=== PATIENT | female | born 1950 | race Caucasian/White ===

== ENCOUNTER 2021-09-13 06:15 | Day surgery (SDC) | payer MEDICARE, OTHER ==
[~2021-09-13] VITALS: Ht 160 cm; Wt 70.5 kg
[2021-09-13] MEDS ORDERED: BENZOCAINE 20% 50 MCG/SPRAY 57 GM TP ONE (06:16)
[2021-09-13] MEDS ORDERED: LIDOCAINE 4% 50 ML SOLUTION TP ONE (06:16)
[2021-09-13] MEDS ORDERED: LIDOCAINE 2% 5 ML JELLY TP ONE (06:16)
[2021-09-13] MEDS ORDERED: SODIUM CHLORIDE 0.9% 1,000 ML IV ONE (06:30)
[2021-09-13] MEDS ORDERED: SODIUM CHLORIDE 0.9% 1,000 ML ONE (06:36)
[2021-09-13] MEDS ORDERED: MIDAZOLAM HCL 5 MG/ML VIAL ONE (07:03)
[2021-09-13] MEDS ORDERED: FentaNYL CITRATE PF 100 MCG/2 ML VIAL ONE (07:03)
[2021-09-13 07:13] LABS: COVID AG,FIA SOURCE NASAL SWAB
[2021-09-13] MEDS ORDERED: ASPI325T87 PO (08:10)
[2021-09-13] MEDS ORDERED: NIFE90TA63 PO (08:10)
[2021-09-13] MEDS ORDERED: LEVO200 PO (08:10)
[2021-09-13] MEDS ORDERED: BUSP10TA23 PO (08:10)
[2021-09-13] MEDS ORDERED: FENO48TA20 PO (08:10)
[2021-09-13] MEDS ORDERED: PARI1CAP11 PO (08:10)
[2021-09-13] MEDS ORDERED: PHEN50 PO (08:10)
[2021-09-13] MEDS ORDERED: CINA30 PO (08:10)
[2021-09-13] MEDS ORDERED: VIT1TABL66 PO (08:10)
[2021-09-13] MEDS ORDERED: SODI650T33 PO (08:10)
[2021-09-13] MEDS ORDERED: FAMO20 PO (08:10)
[2021-09-13] MEDS ORDERED: NEBI5TAB2 PO (08:10)
[2021-09-13] MEDS ORDERED: CLOT15CR5 TP (08:10)
[2021-09-13] MEDS ORDERED: OLOP2.5D12 OP (08:10)
[2021-09-13] MEDS ORDERED: MethylPREDNISolone SOD SUCC 125 MG/2 ML VIAL IVP ONE (09:45)
[2021-09-13] MEDS ORDERED: OXYGEN THERAPY IH SCH (20:00)
== END 2021-09-13 11:15 | disposition home or self-care (01) ==
LOC: SURGERY 06:15
PROVIDERS: ATTEND Internal Medicine Critical Care Medicine
DX: R05.3 Chronic cough (principal); Z53.8 Procedure and treatment not carried out for other reasons; R91.1 Solitary pulmonary nodule; J98.09 Other diseases of bronchus, not elsewhere classified; J98.8 Other specified respiratory disorders
CPT/HCPCS: 87426; C9803; J2250; J3010; J7030